=== PATIENT | male | born 1975 | race African-American/Black ===

== ENCOUNTER 2016-07-31 18:05 | Emergency (ER) | payer OTHER ==
[~2016-07-31 18:05] MED LIST: /ESCI20TA; /QUET25TA; ZYPR20TA
[2016-07-31] MEDS ORDERED: ADACEL/BOOSTRIX VACCINE (DIPHTH/PERTUSS/ACELL/TETANUS)0.5ML SYR (90715) As Ordered ONE (19:24)
[2016-07-31] MEDS ORDERED: IBUPROFEN 600 MG TAB As Ordered ONE (19:24)
--- NOTE | 2016-07-31 19:51 | EDDOCDS ---
Physician Documentation [facility] Name: Ronnie Juarez Age: 41 yrs Sex: Male : 1975 Arrival Date: 07/31/2016 Time: 18:05 Bed TR8 Private MD: NO PRIMARY PHYSICIAN, . Disposition: 07/31/16 19:16 Discharged to Home/Self Care. Impression: Laceration without foreign body of left thumb with damage to nail. - Condition is Stable. - Discharge Instructions: Fingernail or Toenail Loss. - Prescriptions for Ibuprofen 600 mg Oral Tablet - take 1 tablet by ORAL route every 6 hours As needed take with food; 30 tablet. - Medication Reconciliation, Local Pharmacy Hours form. - [facility]; When: Call to arrange an appointment; Reason: Recheck today's complaints, Continuance of care. - Problem is new. - Symptoms are unchanged. Historical: - Allergies: no known allergies; - Home Meds: 1. Ambien 10 mg Oral tab 1 tab once daily 2. BuSpar Oral 15 mg three times a day 3. Seroquel 100 mg Oral tab nightly - PMHx: Anxiety; insommnia; - PSHx: none; - Social history: Smoking status: Patient states was never smoker of tobacco. No barriers to communication noted, The patient speaks fluent Mongolian. - Family history: Not pertinent. - : The pt / caregiver states he / she is not on anticoagulants. Home medication list is obtained from the patient. - Exposure Risk Screening:: None identified. Vital Signs: 07/31 18:07 BP 167 / 92; Pulse 100; Resp 18; Pulse Ox 97% on R/A; Weight 90.72 kg / 200 lbs (R); sar1 Height 6 ft. 0 in. (182.88 cm); Pain 6/10; 18:07 Body Mass Index 27.12 (90.72 kg, 182.88 cm) sar1 MDM: 18:27 [facility] [place] was scanned into [employer] and attached to record. [email or web address] 19:11 Ibuprofen 600 mg PO once ordered. mo1 19:11 Misc. Nursing Order ordered. mo1 19:11 Dressing ordered. mo1 19:11 Tetanus- Diptheria-Acellular Pertussis 0.5 ml IM once; Routine booster 10-64yrs, >64 mo1 with child contact Denton Morales ordered. 19:17 Financial registration complete. 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 Exp: 09/15/2018. Lot #: [id number]. } Route: IM; Site: right deltoid; Signatures: Delilah Hinds RN RN [facility] [place] Solitario Cardenas RN RN Syed Covarrubias Michael, PA PA mo1 Velia Garcia, Reg Reg ks16 The chart was reviewed and I authenticate all verbal orders and agree with the evaluation and treatment provided.Attachments: 18:27 [facility] [place] [email or web address] MTDD
--- NOTE | 2016-07-31 19:51 | EDDOCDS ---
[facility]urse[facility] Notes [facility] Name: Ronnie Juarez Age: 41 yrs Sex: Male : 1975 Arrival Date: 07/31/2016 Time: 18:05 Bed TR8 Private MD: NO PRIMARY PHYSICIAN, . Diagnosis: Laceration without foreign body of left thumb with damage to nail Presentation: 07/31 18:14 Presenting complaint: Patient states: injured nail on left hand, got it caught on a po nail. Adult Sepsis Screening: The patient does not have new or worsening altered mentation. Patient's respiratory rate is less than 22. Systolic blood pressure is greater than 100. Patient has a qSOFA score of 0- Negative Sepsis Screen. Suicide/Homicide risk assessment- the patient denies having any suicidal and/or homicidal ideations and does not present with any other emotional, behavioral or mental health complaints. Status: Patient is not a underwriting service representative or dependent. Transition of care: patient was not received from another setting of care. 18:14 Acuity: MAIA Level 5 po 18:14 Method Of Arrival: Walkin/Carried/Asstd po Triage Assessment: 18:15 General: Appears in no apparent distress, Behavior is cooperative. Pain: Location: left po thumbnail Pain currently is 6 out of 10 on a pain scale. Is continuous. HIV screening NA for this visit Offered previously. Neurological: Level of Consciousness is awake, alert, Oriented to person, place, time. Respiratory: Airway is patent Respiratory effort is even, unlabored. Musculoskeletal: Circulation, motion, and sensation intact. Historical: - Allergies: no known allergies; - Home Meds: 1. Ambien 10 mg Oral tab 1 tab once daily 2. BuSpar Oral 15 mg three times a day 3. Seroquel 100 mg Oral tab nightly - PMHx: Anxiety; insommnia; - PSHx: none; - Social history: Smoking status: Patient states was never smoker of tobacco. No barriers to communication noted, The patient speaks fluent Mohawk. - Family history: Not pertinent. - : The pt / caregiver states he / she is not on anticoagulants. Home medication list is obtained from the patient. - Exposure Risk Screening:: None identified. Screenin:42 Screening information is obtained from the patient. Fall risk: No risks identified. kmg1 Assistance ADL's: requires no assistance with activities of daily living. Abuse/DV Screen: The patient / caregiver reports he/she is: not in a situation that causes fear, pain or injury. Nutritional screening: No deficits noted. Advance Directives: There is no active DNR order. home support is adequate. Assessment: 19:42 General: Appears in no apparent distress, comfortable, Behavior is appropriate for age. kmg1 Pain: Location: left thumbnail Pain currently is 6 out of 10 on a pain scale. Quality of pain is described as throbbing. Musculoskeletal: Circulation, motion, and sensation intact Capillary refill < 3 seconds in left fingers. Injury Description: Injured left thumb nail bed. Tore at the cuticle after catching on a nail. Vital Signs: 18:07 BP 167 / 92; Pulse 100; Resp 18; Pulse Ox 97% on R/A; Weight 90.72 kg (R); Height 6 ft. sar1 0 in. (182.88 cm); Pain 6/10; 18:07 Body Mass Index 27.12 (90.72 kg, 182.88 cm) sar1 Vitals: 18:07 Log In Time: July 31, 2016 at 18:07. [facility] ED Course: 18:07 Patient visited by Debby Mo, Hanny Hollis. sar1 18:07 NO PRIMARY PHYSICIAN, . is Private Physician. sar1 18:07 Patient moved to Waiting sar1 18:08 Patient moved to Pre RCE sar1 18:15 Triage Initiated po 18:15 Arm band placed on right wrist. Patient placed in waiting room. po 18:16 Patient visited by Solitario Cardenas RN. po 18:26 Patient name changed from Ronnie\S\\S\Larry\S\ to [place]\S\ \S\Larry. EDMS 18:27 [facility] Payment Agreement was scanned into [employer] and attached to record. ks16 18:45 Patient moved to Triage 2 mlb1 18:56 Scottie Maynard PA is PHCP. mo1 18:56 Yan Tolliver DO is Attending Physician. mo1 19:09 Patient visited by Scottie Maynard PA. mo1 19:16 [facility] is Referral Physician. mo1 19:42 The patient / caregiver is instructed regarding the plan of care and ED course. kmg1 19:42 No IV's were initiated during this patient's visit. Assisted Provider with Wound care. kmg1 Dressings: Band aid. 19:43 Patient moved to TR8 ms18 Administered Medications: 19:30 Drug: Ibuprofen 600 mg [ibuprofen 600 mg tablet (1 tabs)] Route: PO; kmg1 19:30 Drug: Tetanus- Diptheria-Acellular Pertussis 0.5 ml [diphth,pertussis(acel),tetanus 2.5 kmg1 Lf unit-8 mcg-5 Lf/0.5mL IM syringe (0.5 mL)] {Primary Teaching Assistant: [employer]. Exp: 09/15/2018. Lot #: [id number]. } Route: IM; Site: right deltoid; Order Results: There are currently no results for this order. Outcome: 19:16 Discharge ordered by Provider. mo1 19:42 Discharge Assessment: Patient awake, alert and oriented x 3. No cognitive and/or kmg1 functional deficits noted. Patient verbalized understanding of disposition instructions. Patient awake and alert. patient administered narcotics - no. The following High Risk Discharge criteria are identified: None. Discharged to home ambulatory. Condition: stable. Discharge instructions given to patient, Instructed on discharge instructions, follow up and referral plans. medication usage, Demonstrated understanding of instructions, medications, Pt was receptive of discharge instructions/ teaching. Prescriptions given X 1. No special radiology studies were completed. Property sent home with patient. 19:51 Patient left the ED. [facility] [place] Signatures: Dispatcher [employer] EDMS Delilah Hinds RN RN kmg1 Solitario CardenasRN Scottie Salcido, RN RN mlb1 Scottie Maynard PA PA mo1 Shaila Barrett,OSCAR MOORE ms18 Debby Mo, Holistic Health Practitioner Unit sar1 Velia Garcia, Reg Reg ks16 MTDD
--- NOTE | 2016-08-02 20:51 | EDDOCDS ---
Physician Documentation [facility] Name: Ronnie Juarez Age: 41 yrs Sex: Male : 1975 Arrival Date: 07/31/2016 Time: 18:05 Bed TR8 Private MD: NO PRIMARY PHYSICIAN, . Disposition: 07/31/16 19:16 Discharged to Home/Self Care. Impression: Laceration without foreign body of left thumb with damage to nail. - Condition is Stable. - Discharge Instructions: Fingernail or Toenail Loss. - Prescriptions for Ibuprofen 600 mg Oral Tablet - take 1 tablet by ORAL route every 6 hours As needed take with food; 30 tablet. - Medication Reconciliation, Local Pharmacy Hours form. - Follow up: [facility]; When: Call to arrange an appointment; Reason: Recheck today's complaints, Continuance of care. - Problem is new. - Symptoms are unchanged. Historical: - Allergies: no known allergies; - Home Meds: 1. Ambien 10 mg Oral tab 1 tab once daily 2. BuSpar Oral 15 mg three times a day 3. Seroquel 100 mg Oral tab nightly - PMHx: Anxiety; insommnia; - PSHx: none; - Social history: Smoking status: Patient states was never smoker of tobacco. No barriers to communication noted, The patient speaks fluent Tongan. - Family history: Not pertinent. - : The pt / caregiver states he / she is not on anticoagulants. Home medication list is obtained from the patient. - Exposure Risk Screening:: None identified. Vital Signs: 07/31 18:07 BP 167 / 92; Pulse 100; Resp 18; Pulse Ox 97% on R/A; Weight 90.72 kg / 200 lbs (R); sar1 Height 6 ft. 0 in. (182.88 cm); Pain 6/10; 18:07 Body Mass Index 27.12 (90.72 kg, 182.88 cm) sar1 MDM: 18:27 [facility] [place] Payment Agreement was scanned into [employer] and attached to record. ks16 19:11 Ibuprofen 600 mg PO once ordered. mo1 19:11 Misc. Nursing Order ordered. mo1 19:11 Dressing ordered. mo1 19:11 Tetanus- Diptheria-Acellular Pertussis 0.5 ml IM once; Routine booster 10-64yrs, >64 mo1 with child contact Denton Morales ordered. 19:17 Financial registration complete. zo 08/01 05:33 T-Sheet-- Draft Copy was scanned into [employer] and attached to record. 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 Exp: 09/15/2018. Lot #: [id number]. } Route: IM; Site: right deltoid; Signatures: Delilah Hinds, RN RN [facility] [place] Solitario Cardenas RN RN po Olin, Zoeann zo O'Hagan, Michael, PA PA mo1 Velia Garcia, Reg Reg ks16 Mili Max, Reg Reg hs2 The chart was reviewed and I authenticate all verbal orders and agree with the evaluation and treatment provided.Attachments: 18:27 [facility] Payment Agreement [email or web address] 08/01 05:33 T-Sheet-- Draft Copy hs2 Chart Complete MTDD
--- NOTE | 2016-08-02 20:51 | EDDOCDS ---
Physician Documentation [facility] Name: Ronnie Juarez Age: 41 yrs Sex: Male : 1975 Arrival Date: 07/31/2016 Time: 18:05 Bed TR8 Private MD: NO PRIMARY PHYSICIAN, . Disposition: 07/31/16 19:16 Discharged to Home/Self Care. Impression: Laceration without foreign body of left thumb with damage to nail. - Condition is Stable. - Discharge Instructions: Fingernail or Toenail Loss. - Prescriptions for Ibuprofen 600 mg Oral Tablet - take 1 tablet by ORAL route every 6 hours As needed take with food; 30 tablet. - Medication Reconciliation, Local Pharmacy Hours form. - Follow up: [facility]; When: Call to arrange an appointment; Reason: Recheck today's complaints, Continuance of care. - Problem is new. - Symptoms are unchanged. Historical: - Allergies: no known allergies; - Home Meds: 1. Ambien 10 mg Oral tab 1 tab once daily 2. BuSpar Oral 15 mg three times a day 3. Seroquel 100 mg Oral tab nightly - PMHx: Anxiety; insommnia; - PSHx: none; - Social history: Smoking status: Patient states was never smoker of tobacco. No barriers to communication noted, The patient speaks fluent Canadian. - Family history: Not pertinent. - : The pt / caregiver states he / she is not on anticoagulants. Home medication list is obtained from the patient. - Exposure Risk Screening:: None identified. Vital Signs: 07/31 18:07 BP 167 / 92; Pulse 100; Resp 18; Pulse Ox 97% on R/A; Weight 90.72 kg / 200 lbs (R); sar1 Height 6 ft. 0 in. (182.88 cm); Pain 6/10; 18:07 Body Mass Index 27.12 (90.72 kg, 182.88 cm) sar1 MDM: 18:27 [facility] [place] Agreement was scanned into [employer] and attached to record. ks16 19:11 Ibuprofen 600 mg PO once ordered. mo1 19:11 Misc. Nursing Order ordered. mo1 19:11 Dressing ordered. mo1 19:11 Tetanus- Diptheria-Acellular Pertussis 0.5 ml IM once; Routine booster 10-64yrs, >64 mo1 with child contact Denton Morales ordered. 19:17 Financial registration complete. zo 08/01 05:33 T-Sheet-- Draft Copy was scanned into [employer] and attached to record. 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 Exp: 09/15/2018. Lot #: [id number]. } Route: IM; Site: right deltoid; Signatures: Delilah Hinds, RN RN [facility] [place] Solitario Cardenas RN RN po Olin, Zoeann zo O'Hagan, Michael, PA PA mo1 Velia Garcia, Reg Reg ks16 Mili Max, Reg Reg hs2 The chart was reviewed and I authenticate all verbal orders and agree with the evaluation and treatment provided.Attachments: 18:27 [facility] Payment Agreement [email or web address] 08/01 05:33 T-Sheet-- Draft Copy hs2 Chart Complete MTDD
--- NOTE | 2016-08-02 20:51 | EDDOCDS ---
Nurse's Notes [facility] Name: Ronnie Juarez Age: 41 yrs Sex: Male : 1975 Arrival Date: 07/31/2016 Time: 18:05 Bed TR8 Private MD: NO PRIMARY PHYSICIAN, . Diagnosis: Laceration without foreign body of left thumb with damage to nail Presentation: 07/31 18:14 Presenting complaint: Patient states: injured nail on left hand, got it caught on a po nail. Adult Sepsis Screening: The patient does not have new or worsening altered mentation. Patient's respiratory rate is less than 22. Systolic blood pressure is greater than 100. Patient has a qSOFA score of 0- Negative Sepsis Screen. Suicide/Homicide risk assessment- the patient denies having any suicidal and/or homicidal ideations and does not present with any other emotional, behavioral or mental health complaints. Status: Patient is not a human service specialist or dependent. Transition of care: patient was not received from another setting of care. 18:14 Acuity: MAIA Level 5 po 18:14 Method Of Arrival: Walkin/Carried/Asstd po Triage Assessment: 18:15 General: Appears in no apparent distress, Behavior is cooperative. Pain: Location: left po thumbnail Pain currently is 6 out of 10 on a pain scale. Is continuous. HIV screening NA for this visit Offered previously. Neurological: Level of Consciousness is awake, alert, Oriented to person, place, time. Respiratory: Airway is patent Respiratory effort is even, unlabored. Musculoskeletal: Circulation, motion, and sensation intact. Historical: - Allergies: no known allergies; - Home Meds: 1. Ambien 10 mg Oral tab 1 tab once daily 2. BuSpar Oral 15 mg three times a day 3. Seroquel 100 mg Oral tab nightly - PMHx: Anxiety; insommnia; - PSHx: none; - Social history: Smoking status: Patient states was never smoker of tobacco. No barriers to communication noted, The patient speaks fluent Romanian. - Family history: Not pertinent. - : The pt / caregiver states he / she is not on anticoagulants. Home medication list is obtained from the patient. - Exposure Risk Screening:: None identified. Screenin:42 Screening information is obtained from the patient. Fall risk: No risks identified. kmg1 Assistance ADL's: requires no assistance with activities of daily living. Abuse/DV Screen: The patient / caregiver reports he/she is: not in a situation that causes fear, pain or injury. Nutritional screening: No deficits noted. Advance Directives: There is no active DNR order. home support is adequate. Assessment: 19:42 General: Appears in no apparent distress, comfortable, Behavior is appropriate for age. kmg1 Pain: Location: left thumbnail Pain currently is 6 out of 10 on a pain scale. Quality of pain is described as throbbing. Musculoskeletal: Circulation, motion, and sensation intact Capillary refill < 3 seconds in left fingers. Injury Description: Injured left thumb nail bed. Tore at the cuticle after catching on a nail. Vital Signs: 18:07 BP 167 / 92; Pulse 100; Resp 18; Pulse Ox 97% on R/A; Weight 90.72 kg (R); Height 6 ft. sar1 0 in. (182.88 cm); Pain 6/10; 18:07 Body Mass Index 27.12 (90.72 kg, 182.88 cm) sar1 Vitals: 18:07 Log In Time: July 31, 2016 at 18:07. [facility] ED Course: 18:07 Patient visited by Debby Mo, Hanny Hollis. sar1 18:07 NO PRIMARY PHYSICIAN, . is Private Physician. sar1 18:07 Patient moved to Waiting sar1 18:08 Patient moved to Pre RCE sar1 18:15 Triage Initiated po 18:15 Arm band placed on right wrist. Patient placed in waiting room. po 18:16 Patient visited by Solitario Cardenas RN. po 18:26 Patient name changed from Ronnie\S\\S\Larry\S\ to [place]\S\ \S\Larry. EDMS 18:27 [facility] Payment Agreement was scanned into [employer] and attached to record. ks16 18:45 Patient moved to Triage 2 mlb1 18:56 Scottie Maynard PA is PHCP. mo1 18:56 Yan Tolliver DO is Attending Physician. mo1 19:09 Patient visited by Scottie Maynard PA. mo1 19:16 [facility] is Referral Physician. mo1 19:42 The patient / caregiver is instructed regarding the plan of care and ED course. kmg1 19:42 No IV's were initiated during this patient's visit. Assisted Provider with Wound care. [facility] [place] Dressings: Band aid. 19:43 Patient moved to 8 ms18 08/01 05:33 T-Sheet-- Draft Copy was scanned into [employer] and attached to record. 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 Exp: 09/15/2018. Lot #: [id number]. } Route: IM; Site: right deltoid; Order Results: There are currently no results for this order. Outcome: 19:16 Discharge ordered by Provider. mo1 19:42 Discharge Assessment: Patient awake, alert and oriented x 3. No cognitive and/or kmg1 functional deficits noted. Patient verbalized understanding of disposition instructions. Patient awake and alert. patient administered narcotics - no. The following High Risk Discharge criteria are identified: None. Discharged to home ambulatory. Condition: stable. Discharge instructions given to patient, Instructed on discharge instructions, follow up and referral plans. medication usage, Demonstrated understanding of instructions, medications, Pt was receptive of discharge instructions/ teaching. Prescriptions given X 1. No special radiology studies were completed. Property sent home with patient. 19:51 Patient left the ED. [facility] [place] Signatures: [facility] Delilah Hinds, RN RN kmg1 Solitario CardenasRN OSCAR po Scottie Bland, RN RN mlb1 Scottie Maynard PA PA mo1 Shaila Barrett RN RN ms18 Debby Mo, Superintendent Warehouse Unit sar1 Velia Garcia, Reg Reg ks16 Mili Max, Reg Reg hs2 Chart Complete MTDD
== END 2016-07-31 19:51 | disposition home or self-care (01) ==
LOC: M ED 18:05
DX: S61.112A Laceration without foreign body of left thumb with damage to nail, initial encounter (principal); S61.309A Unspecified open wound of unspecified finger with damage to nail, initial encounter; S60.112A Contusion of left thumb with damage to nail, initial encounter; X58.XXXA Exposure to other specified factors, initial encounter; Y92.019 Unspecified place in single-family (private) house as the place of occurrence of the external cause; Y93.9 Activity, unspecified; Y99.9 Unspecified external cause status; F41.9 Anxiety disorder, unspecified; G47.00 Insomnia, unspecified; Z79.899 Other long term (current) drug therapy

== ENCOUNTER 2016-08-17 14:46 | Emergency (ER) | payer OTHER ==
--- NOTE | 2016-08-17 15:36 | EDDOCDS ---
Nurse's Notes [facility] Name: Ronnie Juarez Age: 41 yrs Sex: Male : 1975 Arrival Date: 08/17/2016 Time: 14:46 Bed PR Private MD: Nubia Cade M Diagnosis: Encounter for issue of repeat prescription Presentation: 08/17 14:53 Presenting complaint: Patient states: Seeking medication refill for Rozerem 8 mg mlb1 nightly. Adult Sepsis Screening: The patient does not have new or worsening altered mentation. Patient's respiratory rate is less than 22. Systolic blood pressure is greater than 100. Patient has a qSOFA score of 0- Negative Sepsis Screen. Suicide/Homicide risk assessment- the patient denies having any suicidal and/or homicidal ideations and does not present with any other emotional, behavioral or mental health complaints. Status: Patient is not a vp cardiovascular service line or dependent. Transition of care: patient was not received from another setting of care. 14:53 Acuity: MAIA Level 5 mlb1 14:53 Method Of Arrival: Walkin/Carried/Asstd mlb1 Triage Assessment: 14:56 General: Appears in no apparent distress, Behavior is cooperative. Pain: Denies pain. mlb1 HIV screening NA for this visit Offered previously. Historical: - Allergies: no known allergies; - Home Meds: 1. BuSpar Oral 15 mg three times a day 2. Seroquel 100 mg Oral tab nightly 3. Rozerem 8 mg oral tab 1 tab once daily - PMHx: Anxiety; insommnia; - PSHx: none; - Social history: Smoking status: Patient states was never smoker of tobacco. No barriers to communication noted, The patient speaks fluent Prydeinig, Speaks appropriately for age. - Family history: Not pertinent. - : The pt / caregiver states he / she is not on anticoagulants. Home medication list is obtained from the patient. - Exposure Risk Screening:: None identified. Screenin:34 Screening information is obtained from the patient. Fall risk: No risks identified. ck1 Assistance ADL's: requires no assistance with activities of daily living. Abuse/DV Screen: The patient / caregiver reports he/she is: not in a situation that causes fear, pain or injury. Nutritional screening: No deficits noted. Advance Directives: Currently, there is no health care proxy. home support is adequate. Assessment: 15:35 General: Appears in no apparent distress, comfortable, Behavior is appropriate for age, ck1 cooperative. Pain: Denies pain. Neurological: Level of Consciousness is awake, alert, obeys commands, Oriented to person, place, time. Respiratory: No deficits noted. Derm: Skin is intact, is healthy with good turgor, Skin is pink, warm & dry. Musculoskeletal: Circulation, motion, and sensation intact Range of motion intact in all extremities. Vital Signs: 14:48 BP 219 / 99; Pulse 107; Resp 18; Temp 98.0; Pulse Ox 100% ; Weight 90.72 kg; Height 6 elp ft. 0 in. (182.88 cm); Pain 0/10; 15:33 BP 150 / 90 RA Sitting (auto/lg); Pulse 96; Resp 18; Temp 98.6(O); Pulse Ox 100% on rs6 R/A; Pain 0/10; 14:48 Body Mass Index 27.12 (90.72 kg, 182.88 cm) elp Vitals: 14:48 Log In Time: August 17, 2016 at 14:45. elp ED Course: 14:46 Patient visited by Melissa Pulliam PCA. elp 14:46 Patient moved to Waiting elp 14:48 Nubia Cade is Private Physician. elp 14:48 Patient visited by Melissa Pulliam PCA. elp 14:48 Patient moved to Pre RCE elp 14:53 Patient visited by Scottie Bland, OSCAR. mlb1 14:55 Triage Initiated mlb1 14:56 Patient visited by Scottie Bland, RN. mlb1 15:09 Patient moved to PR2 / rs6 15:19 Julio C[facility]ar [facility]C [facility]. cc10 15:19 Cedric Marie MD is Attending Physician. cc10 15:19 Patient visited by Julio César Cruz PA-C. cc10 15:19 Patient visited by Julio César Cruz PA-C. cc10 15:24 Nubia Cade is Referral Physician. cc10 15:33 Patient visited by Clary Nolan PCA. rs6 15:34 The patient / caregiver is instructed regarding the plan of care and ED course. ck1 15:34 No IV's were initiated during this patient's visit. No procedures done that require ck1 assistance. Order Results: There are currently no results for this order. Outcome: 15:24 Discharge ordered by Provider. cc10 15:34 Discharge Assessment: Patient awake, alert and oriented x 3. No cognitive and/or ck1 functional deficits noted. Patient verbalized understanding of disposition instructions. patient administered narcotics - no. The following High Risk Discharge criteria are identified: None. Discharged to home ambulatory. Condition: stable. Discharge instructions given to patient, Instructed on discharge instructions, follow up and referral plans. medication usage, Demonstrated understanding of instructions, medications, Pt was receptive of discharge instructions/ teaching. Prescriptions given X 1. No special radiology studies were completed. Property :Personal belongings accompany Pt. 15:35 Patient left the ED. ck1 Signatures: Scottie Bland, RN RN mlb1 Lachelle Hodge RN RN ck1 Melissa Pulliam, SENIOR MANAGING DIRECTOR SENIOR MANAGING DIRECTOR elp Julio César Cruz PA-C PASangita cc10 Clary Nolan, SENIOR MANAGING DIRECTOR SENIOR MANAGING DIRECTOR rs6 WILLIAMD
--- NOTE | 2016-08-17 15:36 | EDDOCDS ---
Physician Documentation [facility] Name: Ronnie Juarez Age: 41 yrs Sex: Male : 1975 Arrival Date: 08/17/2016 Time: 14:46 Bed Private MD: Nubia Cade M Disposition: 08/17/16 15:24 Discharged to Home/Self Care. Impression: Encounter for issue of repeat prescription. - Condition is Stable. - Discharge Instructions: Medicine Refill at the Emergency Department. - Prescriptions for Rozerem 8 mg Oral tablet - take 1 tablet by ORAL route at bedtime at bedtime; 20 tablet. - Medication Reconciliation form. - Follow up: Emergency Department; When: As needed; Reason: Worsening of conditions. Follow up: Nubia Cade; When: Call to arrange an appointment; Reason: Recheck today's complaints, Continuance of care. - Problem is chronic. - Symptoms are unchanged. Historical: - Allergies: no known allergies; - Home Meds: 1. BuSpar Oral 15 mg three times a day 2. Seroquel 100 mg Oral tab nightly 3. Rozerem 8 mg oral tab 1 tab once daily - PMHx: Anxiety; insommnia; - PSHx: none; - Social history: Smoking status: Patient states was never smoker of tobacco. No barriers to communication noted, The patient speaks fluent Pashto, Speaks appropriately for age. - Family history: Not pertinent. - : The pt / caregiver states he / she is not on anticoagulants. Home medication list is obtained from the patient. - Exposure Risk Screening:: None identified. Vital Signs: 08/17 14:48 BP 219 / 99; Pulse 107; Resp 18; Temp 98.0; Pulse Ox 100% ; Weight 90.72 kg / 200 lbs; elp Height 6 ft. 0 in. (182.88 cm); Pain 0/10; 15:33 BP 150 / 90 RA Sitting (auto/lg); Pulse 96; Resp 18; Temp 98.6(O); Pulse Ox 100% on rs6 R/A; Pain 0/10; 14:48 Body Mass Index 27.12 (90.72 kg, 182.88 cm) elp Signatures: Scottie Bland RN RN mlb1 Brenda-Kendell,Lachelle,RN RN ck1 [place], Julio César, PA-C PA-C cc10 MTDD
--- NOTE | 2016-08-19 16:36 | EDDOCDS ---
Physician Documentation [facility] Name: Ronnie Juarez Age: 41 yrs Sex: Male : 1975 Arrival Date: 08/17/2016 Time: 14:46 Bed Private MD: Nubia Cade M Disposition: 08/17/16 15:24 Discharged to Home/Self Care. Impression: Encounter for issue of repeat prescription. - Condition is Stable. - Discharge Instructions: Medicine Refill at the Emergency Department. - Prescriptions for Rozerem 8 mg Oral tablet - take 1 tablet by ORAL route at bedtime at bedtime; 20 tablet. - Medication Reconciliation form. - Follow up: Emergency Department; When: As needed; Reason: Worsening of conditions. Follow up: Nubia Cade; When: Call to arrange an appointment; Reason: Recheck today's complaints, Continuance of care. - Problem is chronic. - Symptoms are unchanged. Historical: - Allergies: no known allergies; - Home Meds: 1. BuSpar Oral 15 mg three times a day 2. Seroquel 100 mg Oral tab nightly 3. Rozerem 8 mg oral tab 1 tab once daily - PMHx: Anxiety; insommnia; - PSHx: none; - Social history: Smoking status: Patient states was never smoker of tobacco. No barriers to communication noted, The patient speaks fluent Kinyarwanda, Speaks appropriately for age. - Family history: Not pertinent. - : The pt / caregiver states he / she is not on anticoagulants. Home medication list is obtained from the patient. - Exposure Risk Screening:: None identified. Vital Signs: 08/17 14:48 BP 219 / 99; Pulse 107; Resp 18; Temp 98.0; Pulse Ox 100% ; Weight 90.72 kg / 200 lbs; elp Height 6 ft. 0 in. (182.88 cm); Pain 0/10; 15:33 BP 150 / 90 RA Sitting (auto/lg); Pulse 96; Resp 18; Temp 98.6(O); Pulse Ox 100% on rs6 R/A; Pain 0/10; 14:48 Body Mass Index 27.12 (90.72 kg, 182.88 cm) elp MDM: 15:40 [facility] [place] Agreement was scanned into [employer] and attached to record. lg 08/18 10:13 T-Sheet-- Draft Copy was scanned into [employer] and attached to record. gb Signatures: Lily Walter, Reg Reg gb Randal Mota, Reg Reg lg Scottie Bland RN RN mlb1 Lachelle Hodge RN RN ck1 Julio César Cruz, EWELINAC PASangita cc10 The chart was reviewed and I authenticate all verbal orders and agree with the evaluation and treatment provided.Attachments: 08/17 15:40 [facility] Payment Agreement lg 08/18 10:13 T-Sheet-- Draft Copy gb Chart Complete MTDD
--- NOTE | 2016-08-19 16:36 | EDDOCDS ---
Physician Documentation [facility] Name: Ronnie Juarez Age: 41 yrs Sex: Male : 1975 Arrival Date: 08/17/2016 Time: 14:46 Bed Private MD: Nubia Cade M Disposition: 08/17/16 15:24 Discharged to Home/Self Care. Impression: Encounter for issue of repeat prescription. - Condition is Stable. - Discharge Instructions: Medicine Refill at the Emergency Department. - Prescriptions for Rozerem 8 mg Oral tablet - take 1 tablet by ORAL route at bedtime at bedtime; 20 tablet. - Medication Reconciliation form. - Follow up: Emergency Department; When: As needed; Reason: Worsening of conditions. Follow up: Nubia Cade; When: Call to arrange an appointment; Reason: Recheck today's complaints, Continuance of care. - Problem is chronic. - Symptoms are unchanged. Historical: - Allergies: no known allergies; - Home Meds: 1. BuSpar Oral 15 mg three times a day 2. Seroquel 100 mg Oral tab nightly 3. Rozerem 8 mg oral tab 1 tab once daily - PMHx: Anxiety; insommnia; - PSHx: none; - Social history: Smoking status: Patient states was never smoker of tobacco. No barriers to communication noted, The patient speaks fluent Welsh, Speaks appropriately for age. - Family history: Not pertinent. - : The pt / caregiver states he / she is not on anticoagulants. Home medication list is obtained from the patient. - Exposure Risk Screening:: None identified. Vital Signs: 08/17 14:48 BP 219 / 99; Pulse 107; Resp 18; Temp 98.0; Pulse Ox 100% ; Weight 90.72 kg / 200 lbs; elp Height 6 ft. 0 in. (182.88 cm); Pain 0/10; 15:33 BP 150 / 90 RA Sitting (auto/lg); Pulse 96; Resp 18; Temp 98.6(O); Pulse Ox 100% on rs6 R/A; Pain 0/10; 14:48 Body Mass Index 27.12 (90.72 kg, 182.88 cm) elp MDM: 15:40 [facility] [place] Payment Agreement was scanned into [employer] and attached to record. lg 08/18 10:13 T-Sheet-- Draft Copy was scanned into [employer] and attached to record. gb Signatures: Lily Walter, Reg Reg gb Randal Mota, Reg Reg lg Scottie Bland RN RN mlb1 Lachelle Hodge RN RN ck1 Julio César Cruz, EWELINAC PASangita cc10 The chart was reviewed and I authenticate all verbal orders and agree with the evaluation and treatment provided.Attachments: 08/17 15:40 [facility] Payment Agreement lg 08/18 10:13 T-Sheet-- Draft Copy gb Chart Complete MTDD
--- NOTE | 2016-08-19 16:36 | EDDOCDS ---
Nurse's Notes [facility] Name: Ronnie Juarez Age: 41 yrs Sex: Male : 1975 Arrival Date: 08/17/2016 Time: 14:46 Bed PR Private MD: Nubia Cade M Diagnosis: Encounter for issue of repeat prescription Presentation: 08/17 14:53 Presenting complaint: Patient states: Seeking medication refill for Rozerem 8 mg mlb1 nightly. Adult Sepsis Screening: The patient does not have new or worsening altered mentation. Patient's respiratory rate is less than 22. Systolic blood pressure is greater than 100. Patient has a qSOFA score of 0- Negative Sepsis Screen. Suicide/Homicide risk assessment- the patient denies having any suicidal and/or homicidal ideations and does not present with any other emotional, behavioral or mental health complaints. Status: Patient is not a consulting services associate or dependent. Transition of care: patient was not received from another setting of care. 14:53 Acuity: MAIA Level 5 mlb1 14:53 Method Of Arrival: Walkin/Carried/Asstd mlb1 Triage Assessment: 14:56 General: Appears in no apparent distress, Behavior is cooperative. Pain: Denies pain. mlb1 HIV screening NA for this visit Offered previously. Historical: - Allergies: no known allergies; - Home Meds: 1. BuSpar Oral 15 mg three times a day 2. Seroquel 100 mg Oral tab nightly 3. Rozerem 8 mg oral tab 1 tab once daily - PMHx: Anxiety; insommnia; - PSHx: none; - Social history: Smoking status: Patient states was never smoker of tobacco. No barriers to communication noted, The patient speaks fluent Rwandan, Speaks appropriately for age. - Family history: Not pertinent. - : The pt / caregiver states he / she is not on anticoagulants. Home medication list is obtained from the patient. - Exposure Risk Screening:: None identified. Screenin:34 Screening information is obtained from the patient. Fall risk: No risks identified. ck1 Assistance ADL's: requires no assistance with activities of daily living. Abuse/DV Screen: The patient / caregiver reports he/she is: not in a situation that causes fear, pain or injury. Nutritional screening: No deficits noted. Advance Directives: Currently, there is no health care proxy. home support is adequate. Assessment: 15:35 General: Appears in no apparent distress, comfortable, Behavior is appropriate for age, ck1 cooperative. Pain: Denies pain. Neurological: Level of Consciousness is awake, alert, obeys commands, Oriented to person, place, time. Respiratory: No deficits noted. Derm: Skin is intact, is healthy with good turgor, Skin is pink, warm & dry. Musculoskeletal: Circulation, motion, and sensation intact Range of motion intact in all extremities. Vital Signs: 14:48 BP 219 / 99; Pulse 107; Resp 18; Temp 98.0; Pulse Ox 100% ; Weight 90.72 kg; Height 6 elp ft. 0 in. (182.88 cm); Pain 0/10; 15:33 BP 150 / 90 RA Sitting (auto/lg); Pulse 96; Resp 18; Temp 98.6(O); Pulse Ox 100% on rs6 R/A; Pain 0/10; 14:48 Body Mass Index 27.12 (90.72 kg, 182.88 cm) elp Vitals: 14:48 Log In Time: August 17, 2016 at 14:45. elp ED Course: 14:46 Patient visited by Melissa Pulliam PCA. elp 14:46 Patient moved to Waiting elp 14:48 Nubia Cade is Private Physician. elp 14:48 Patient visited by Melissa Pulliam PCA. elp 14:48 Patient moved to Pre RCE elp 14:53 Patient visited by Scottie Bland, OSCAR. mlb1 14:55 Triage Initiated mlb1 14:56 Patient visited by Scottie Bland, RN. mlb1 15:09 Patient moved to PR2 / rs6 15:19 [facility] cc[facility] 15:19 Cedric Marie MD is Attending Physician. cc10 15:19 Patient visited by Julio César Cruz PA-C. cc10 15:19 Patient visited by Julio César Cruz PA-C. cc10 15:24 Nubia Cade is Referral Physician. cc10 15:33 Patient visited by Clary Nolan PCA. rs6 15:34 The patient / caregiver is instructed regarding the plan of care and ED course. ck1 15:34 No IV's were initiated during this patient's visit. No procedures done that require ck1 assistance. 15:40 Patient name changed from Ronnie\S\\S\Larry\S\ to [place]\S\ \S\Larry. EDMS 15:40 [facility] Payment Agreement was scanned into [employer] and attached to record. 08/18 10:13 T-Sheet-- Draft Copy was scanned into [employer] and attached to record. gb Order Results: There are currently no results for this order. Outcome: 08/17 15:24 Discharge ordered by Provider. cc 15:34 Discharge Assessment: Patient awake, alert and oriented x 3. No cognitive and/or ck1 functional deficits noted. Patient verbalized understanding of disposition instructions. patient administered narcotics - no. The following High Risk Discharge criteria are identified: None. Discharged to home ambulatory. Condition: stable. Discharge instructions given to patient, Instructed on discharge instructions, follow up and referral plans. medication usage, Demonstrated understanding of instructions, medications, Pt was receptive of discharge instructions/ teaching. Prescriptions given X 1. No special radiology studies were completed. Property :Personal belongings accompany Pt. 15:35 Patient left the ED. ck1 Signatures: Dispatcher [employer] EDSD Lily Walter, Reg Reg gb Randal Mota, Reg Reg lg Scottie Bland RN RN mlb1 Lachelle HodgeRN RN ck1 Melissa Pulliam, STRUCTURAL ANALYSIS ENGINEER STRUCTURAL ANALYSIS ENGINEER elp Julio César Cruz, PA-C PA-C cc10 Clary Nolan, STRUCTURAL ANALYSIS ENGINEER STRUCTURAL ANALYSIS ENGINEER rs6 Chart Complete MTDD
== END 2016-08-17 15:35 | disposition home or self-care (01) ==
LOC: M ED 14:46
DX: Z76.0 Encounter for issue of repeat prescription (principal); G47.00 Insomnia, unspecified; F41.9 Anxiety disorder, unspecified; Z79.899 Other long term (current) drug therapy

== ENCOUNTER 2016-11-03 16:53 | Emergency (ER) | payer OTHER ==
[~2016-11-03] VITALS: Ht 185.4 cm; Wt 127.0 kg
[2016-11-03 16:54] VITALS: BP 136/82
[2016-11-03] MEDS ORDERED: BUSP15TA47 PO (17:02)
[2016-11-03] MEDS ORDERED: AMBI10TA PO (17:02)
[2016-11-03] MEDS ORDERED: NAPR500T PO (17:18)
== END 2016-11-03 17:32 | disposition home or self-care (01) ==
LOC: M ED 17:27
DX: M25.561 Pain in right knee (principal); Z79.899 Other long term (current) drug therapy

== ENCOUNTER → 2016-11-25 | Outpatient (CLI) | payer OTHER ==
[~2016-11-25] MED LIST changes: +AMBI10TA PO; +BUSP15TA47 PO; +NAPR500T PO
--- NOTE | 2016-11-25 16:04 | REP ---
MRI RIGHT KNEE: TECHNIQUE: Axial proton density fat saturation, sagittal proton density T2 STIR, water excitation, coronal proton density, proton density fat saturation. No meniscal tear is seen. The cruciate and collateral ligaments are intact. The extensor mechanism is intact. However, there does appear to be increased signal focally in the patellar tendon at the insertion onto the patella suggesting tendinitis or a small partial tear. No osteochondral defect is seen. There does appear to be mild chondromalacia in the medial and lateral joint compartments. Mild marrow edema is seen peripherally in the lateral tibial plateau. This may represent a bone bruise. There is a fairly large joint effusion. No popliteal cyst is seen. IMPRESSION: No meniscal tear. Cruciate and collateral ligaments intact. Small partial tear or tendinitis of the patellar tendon just inferior to the patella. Mild marrow edema lateral tibial plateau. Large joint effusion. Signed by Al Salgado MD 11/25/2016 04:44 P
== END ==
LOC: M RAD 13:48
PROVIDERS: ATTEND Orthopaedic Surgery
DX: M25.561 Pain in right knee (principal)

== ENCOUNTER 2017-04-24 10:24 | Emergency (ER) | payer OTHER, SELFPAY ==
[~2017-04-24] VITALS: Ht 185.4 cm; Wt 88.6 kg
[~2017-04-24 10:24] MED LIST changes: -MAGICMW SSP
[2017-04-24 10:25] VITALS: BP 154/97
[2017-04-24] MEDS ORDERED: MAGICMW SSP (12:27)
[2017-04-24] MEDS ORDERED: MAGIC MOUTHWASH SUSPENSION BTL SS ONE (12:30)
== END 2017-04-24 12:50 | disposition home or self-care (01) ==
LOC: M ED 10:24
DX: J02.9 Acute pharyngitis, unspecified (principal); F41.9 Anxiety disorder, unspecified; F33.9 Major depressive disorder, recurrent, unspecified; F10.20 Alcohol dependence, uncomplicated; F12.20 Cannabis dependence, uncomplicated

== ENCOUNTER → 2017-04-24 | Outpatient (CLI) | payer OTHER ==
[~2017-04-24] MED LIST changes: +MAGICMW SSP
[2017-04-24 10:37] LABS: ALBUMIN 3.6 GM/DL (3.2-5.2); ALBUMIN/GLOBULIN RATIO 0.97 (1.00-1.93); ALKALINE PHOSPHATASE 54 U/L (45-117); ALT/SGPT 35 U/L (12-78); ANION GAP 7 MEQ/L (8-16); AST/SGOT 15 U/L (15-37); BILIRUBIN,TOTAL 0.3 MG/DL (0.2-1.0); BLOOD UREA NITROGEN 14 MG/DL (7-18); CALCIUM LEVEL 8.5 MG/DL (8.5-10.1); CARBON DIOXIDE LEVEL 28 MEQ/L (21-32); CHLORIDE LEVEL 98 MEQ/L (98-107); CHOLESTEROL LEVEL 216 MG/DL (<200); CREATININE FOR GFR 1.11 MG/DL (0.70-1.30); GLOMERULAR FILTRATION RATE > 60.0 (>60); GLUCOSE, FASTING 307 MG/DL (70-105); POTASSIUM SERUM 4.8 MEQ/L (3.5-5.1); SODIUM LEVEL 133 MEQ/L (136-145); TOTAL PROTEIN 7.3 GM/DL (6.4-8.2); TRIGLYCERIDES LEVEL 119 MG/DL (<150)
== END ==
LOC: M LAB 09:43
PROVIDERS: ATTEND Family Medicine Addiction Medicine
DX: E11.9 Type 2 diabetes mellitus without complications (principal)

== ENCOUNTER → 2017-05-16 | Outpatient (REF) | payer OTHER ==
[~2017-05-16] MED LIST changes: +MAGICMW SSP
[2017-05-16 19:41] LABS: URIC ACID, BODY FLUID 7.1 MG/DL (NOT ESTABLISHED)
[2017-05-16 20:04] LABS: BF MONONUCLEAR CELL % 88.8 % (0-0); BF POLYMORPHONUCLEAR CELL % 11.2 % (0-0); RBC BODY FLUID < 2000 10^3/uL (<2000); WBC BODY FLUID 214 /uL (0-10)
[2017-05-16 20:21] LABS: BF DIFF IF INDICATED? YES (NO); SYNOVIAL FLUID COLOR PALE YELLOW (YELLOW)
[2017-05-16 22:11] LABS: CRYSTALS, BODY FLUID NONE SEEN (NONE SEEN)
== END ==
LOC: M LAB REF 17:26
PROVIDERS: ATTEND Orthopaedic Surgery
DX: M25.461 Effusion, right knee (principal)

== ENCOUNTER 2017-06-16 14:03 | Emergency (ER) | payer OTHER ==
[~2017-06-16] VITALS: Ht 182.9 cm; Wt 90.9 kg
[2017-06-16 14:14] VITALS: BP 177/101
[2017-06-16] MEDS ORDERED: LISI10TA4 PO (14:19)
[2017-06-16] MEDS ORDERED: BUSP15TA47 PO (14:19)
[2017-06-16] MEDS ORDERED: GLYB5TA PO (14:19)
[2017-06-16] MEDS ORDERED: METF500T13 PO (14:19)
[2017-06-16] MEDS ORDERED: SERO1TAB3 PO (14:19)
[2017-06-16] MEDS ORDERED: SERO1TAB PO (14:19)
[2017-06-16] MEDS ORDERED: AMBI10TA PO (16:50)
== END 2017-06-16 17:01 | disposition home or self-care (01) ==
LOC: M ED 14:03
DX: Z76.0 Encounter for issue of repeat prescription (principal); G47.00 Insomnia, unspecified; F41.9 Anxiety disorder, unspecified; E11.9 Type 2 diabetes mellitus without complications; F33.9 Major depressive disorder, recurrent, unspecified

== ENCOUNTER 2017-06-24 15:10 | Emergency (ER) | payer OTHER ==
[~2017-06-24] VITALS: Ht 185.4 cm; Wt 94.0 kg
[~2017-06-24 15:10] MED LIST changes: +GLYB5TA PO; +LISI10TA4 PO; +METF500T13 PO; +SERO1TAB PO; +SERO1TAB3 PO
[2017-06-24] MEDS ORDERED: AMBI10TA PO ×2 (17:07→17:17)
[2017-06-24 17:33] VITALS: BP 142/91
== END 2017-06-24 17:52 | disposition home or self-care (01) ==
LOC: M ED 15:10
DX: Z76.0 Encounter for issue of repeat prescription (principal); G47.00 Insomnia, unspecified; Z79.899 Other long term (current) drug therapy

== ENCOUNTER → 2017-08-16 | Outpatient (REF) | payer OTHER ==
[2017-08-19 00:07] LABS: Lyme Disease IgG/IgM Antibodie <0.91 ISR (0.00-0.90); Lyme Disease IgM Ab Quantitati <0.80 index (0.00-0.79)
== END ==
LOC: M LABDRAW1 17:21
DX: M25.461 Effusion, right knee (principal)

== ENCOUNTER 2017-12-23 18:56 | Emergency (ER) | payer OTHER ==
[2017-12-23] MEDS: IBUPROFEN 600 MG TAB PO (20:20)
[2017-12-23] MEDS: NORCO, ANEXSIA 5/325MG TABLET (HYDROcodone/ACETAMINOPHEN) PO (21:05)
== END 2017-12-23 21:21 | disposition home or self-care (01) ==
LOC: M ED 18:56
DX: M17.11 Unilateral primary osteoarthritis, right knee (principal); M25.461 Effusion, right knee; E11.9 Type 2 diabetes mellitus without complications
CPT/HCPCS: 73564

== ENCOUNTER → 2018-02-14 | Outpatient (CLI) | payer OTHER | LOC: M RAD 16:52 | DX: S83.241A Other tear of medial meniscus, current injury, right knee, initial encounter (principal); M17.11 Unilateral primary osteoarthritis, right knee; M22.41 Chondromalacia patellae, right knee; M25.461 Effusion, right knee; X58.XXXA Exposure to other specified factors, initial encounter; Y92.9 Unspecified place or not applicable | CPT/HCPCS: 73721 ==

== ENCOUNTER 2018-03-30 12:09 | Emergency (ER) | payer OTHER | END 2018-03-30 13:28 | disposition left against medical advice (07) | LOC: M ED 12:09 | DX: Z53.29 Procedure and treatment not carried out because of patient's decision for other reasons (principal) ==

== ENCOUNTER → 2018-04-27 | Outpatient (REF) | payer OTHER ==
[2018-04-27 13:52] LABS: ALBUMIN 4.2 GM/DL (3.2-5.2); ALBUMIN/GLOBULIN RATIO 1.31 (1.00-1.93); ALKALINE PHOSPHATASE 43 U/L (45-117); ALT/SGPT 38 U/L (12-78); ANION GAP 12 MEQ/L (8-16); AST/SGOT 13 U/L (7-37); BILIRUBIN,TOTAL 0.3 MG/DL (0.2-1.0); BLOOD UREA NITROGEN 18 MG/DL (7-18); CALCIUM LEVEL 9.3 MG/DL (8.5-10.1); CARBON DIOXIDE LEVEL 24 MEQ/L (21-32); CHLORIDE LEVEL 101 MEQ/L (98-107); CHOLESTEROL LEVEL 249 MG/DL (<200); CHOLESTEROL RISK RATIO 5.533 (<5); CREATININE FOR GFR 0.96 MG/DL (0.70-1.30); GLOMERULAR FILTRATION RATE > 60.0 (>60); GLUCOSE, FASTING 272 MG/DL (70-100); HDL CHOLESTEROL 45 MG/DL (>40); LDL CHOLESTEROL 180 MG/DL (<100); NON-HDL-C 204 MG/DL; POTASSIUM SERUM 4.5 MEQ/L (3.5-5.1); SODIUM LEVEL 137 MEQ/L (136-145); TOTAL PROTEIN 7.4 GM/DL (6.4-8.2); TRIGLYCERIDES LEVEL 122 MG/DL (<150)
[2018-04-27 14:08] LABS: ESTIMATED AVERAGE GLUCOSE 298 MG/DL (60-110)
== END ==
LOC: M LAB REF 12:57
DX: E11.9 Type 2 diabetes mellitus without complications (principal)

== ENCOUNTER 2018-08-10 07:23 | Emergency (ER) | payer OTHER ==
[~2018-08-10] VITALS: Ht 185.4 cm; Wt 95.5 kg
[~2018-08-10 07:23] MED LIST changes: +NAPR-50 PO; -NAPR500T PO; +NORCOTAB PO; +ROZE8TAB16 PO; +ZOLP10TA2 PO
[2018-08-10] MEDS ORDERED: QUET1TAB8 PO (07:43)
[2018-08-10] MEDS ORDERED: METF850T4 PO (07:43)
[2018-08-10] MEDS ORDERED: IBUPROFEN 400 MG TAB PO ONE (08:00)
[2018-08-10] MEDS ORDERED: SERO200T PO (08:00)
[2018-08-10 08:55] VITALS: BP 125/66
--- NOTE | 2018-08-10 09:04 | REP ---
RIGHT KNEE SERIES: Five views. HISTORY: Right knee swelling. COMPARISON STUDY: December 23, 2017. FINDINGS: Five views of the right knee demonstrate medial, lateral, and patellofemoral osteoarthritic spurring which is unchanged radiographically. There is no evidence of fracture or subluxation. There is swelling in the suprapatellar bursa however consistent with a joint effusion. No erosive change is seen. IMPRESSION: Findings consistent with large joint effusion. Three compartment osteoarthritis. Radiographically mild. No change from December 23, 2017. Electronically Signed by Ethan Higginbotham MD 08/10/2018 10:20 A
== END 2018-08-10 09:22 | disposition home or self-care (01) ==
LOC: M ED 07:23
DX: M25.561 Pain in right knee (principal); Z79.899 Other long term (current) drug therapy

== ENCOUNTER → 2018-08-17 | Outpatient (REF) | payer OTHER ==
[~2018-08-17] MED LIST changes: +METF850T4 PO; +QUET1TAB8 PO; +SERO200T PO
[2018-08-17 14:09] LABS: MALB URINE SIEMENS 43.8 MG/L; MAU/CREAT RATIO 37.4 MCG/MG (0.0-30.0)
== END ==
LOC: M LAB REF 13:15
PROVIDERS: ATTEND Family Medicine Addiction Medicine
DX: E11.9 Type 2 diabetes mellitus without complications (principal)

== ENCOUNTER → 2018-09-26 | Outpatient (CLI) | payer OTHER ==
[2018-09-26 09:28] LABS: ALBUMIN 3.8 GM/DL (3.2-5.2); ALT/SGPT 30 U/L (12-78); BILIRUBIN,TOTAL 0.4 MG/DL (0.2-1.0); BLOOD UREA NITROGEN 21 MG/DL (7-18); CALCIUM LEVEL 9.5 MG/DL (8.5-10.1); CARBON DIOXIDE LEVEL 26 MEQ/L (21-32); CHLORIDE LEVEL 95 MEQ/L (98-107); CHOLESTEROL LEVEL 212 MG/DL (<200); CREATININE FOR GFR 1.35 MG/DL (0.70-1.30); GLOMERULAR FILTRATION RATE > 60.0 (>60); GLUCOSE, FASTING 323 MG/DL (70-100); HDL CHOLESTEROL 47 MG/DL (>40); LDL CHOLESTEROL 103 MG/DL (<100); NON-HDL-C 165 MG/DL; POTASSIUM SERUM 4.5 MEQ/L (3.5-5.1); SODIUM LEVEL 132 MEQ/L (136-145); TOTAL PROTEIN 7.3 GM/DL (6.4-8.2); TRIGLYCERIDES LEVEL 310 MG/DL (<150)
[2018-09-26 09:37] LABS: HEMOGLOBIN A1c 11.9 %
== END ==
LOC: M LAB 08:07
PROVIDERS: ATTEND Physician Assistant
DX: Z00.01 Encounter for general adult medical examination with abnormal findings (principal)

== ENCOUNTER 2018-10-26 20:43 | Emergency (ER) | payer OTHER ==
[~2018-10-26] VITALS: Ht 185.4 cm; Wt 90.9 kg
[~2018-10-26 20:43] MED LIST changes: -/ESCI20TA; -/QUET25TA; +HYDR-3715 PO; +LEXA1TAB2; -NAPR-50 PO; +NAPR-837 PO; -NORCOTAB PO; +SERO1TAB3
[2018-10-26] MEDS ORDERED: AMBI10TA PO (21:50)
== END 2018-10-26 22:03 | disposition home or self-care (01) ==
LOC: M ED 20:43
DX: Z76.0 Encounter for issue of repeat prescription (principal); G47.00 Insomnia, unspecified; F41.9 Anxiety disorder, unspecified; F32.9 Major depressive disorder, single episode, unspecified; Z79.899 Other long term (current) drug therapy; Z88.8 Allergy status to other drugs, medicaments and biological substances

== ENCOUNTER → 2019-02-26 | Outpatient (CLI) | payer OTHER ==
[2019-02-26 07:20] LABS: BASO % 0.3 % (0.0-1.0); EOS # 0.5 10^3/uL (0.0-0.50); EOS % 7.3 % (0.0-3.0); HEMATOCRIT 45.8 % (42.0-52.0); HEMOGLOBIN 14.9 g/dl (13.5-17.5); LYMPH # 3.1 10^3/uL (1.5-4.5); LYMPH % 47.5 % (24.0-44.0); MEAN CORPUSCULAR HEMOGLOBIN 27.2 pg (27.0-33.0); MEAN CORPUSCULAR HGB CONC 32.5 g/dl (32.0-36.5); MEAN CORPUSCULAR VOLUME 83.7 fl (80.0-96.0); MONO # 0.5 10^3/uL (0.0-0.8); MONO % 8.1 % (0.0-5.0); NEUTROPHILS # 2.4 10^3/uL (1.8-7.7); NEUTROPHILS % 36.6 % (36.0-66.0); PLATELET COUNT, AUTOMATED 252 10^3/uL (150-450); RED BLOOD COUNT 5.47 10^6/uL (4.30-6.10); WHITE BLOOD COUNT 6.6 10^3/uL (4.0-10.0)
[2019-02-26 07:52] LABS: ALBUMIN 3.9 GM/DL (3.2-5.2); ALT/SGPT 46 U/L (12-78); BILIRUBIN,TOTAL 0.2 MG/DL (0.2-1.0); BLOOD UREA NITROGEN 19 MG/DL (7-18); CALCIUM LEVEL 9.6 MG/DL (8.5-10.1); CARBON DIOXIDE LEVEL 30 MEQ/L (21-32); CHLORIDE LEVEL 100 MEQ/L (98-107); CHOLESTEROL LEVEL 158 MG/DL (<200); CHOLESTEROL RISK RATIO 3.361 (<5); CREATININE FOR GFR 1.04 MG/DL (0.70-1.30); FREE T4 0.88 NG/DL (0.76-1.46); GLOMERULAR FILTRATION RATE > 60.0 (>60); GLUCOSE, FASTING 237 MG/DL (70-100); HDL CHOLESTEROL 47 MG/DL (>40); LDL CHOLESTEROL 81 MG/DL (<100); NON-HDL-C 111 MG/DL; POTASSIUM SERUM 4.4 MEQ/L (3.5-5.1); SODIUM LEVEL 136 MEQ/L (136-145); TOTAL PROTEIN 7.4 GM/DL (6.4-8.2); TRIGLYCERIDES LEVEL 149 MG/DL (<150)
[2019-02-26 09:31] LABS: HEMOGLOBIN A1c 11.3 %
[2019-02-27 11:43] LABS: CORTISOL AM 3.2 UG/DL (4.3-22.4)
[2019-02-28 10:12] LABS: TESTOSTERONE FREE (DIRECT) 9.3 pg/mL (6.8-21.5)
== END ==
LOC: M LAB 06:44
DX: Z13.89 Encounter for screening for other disorder (principal); Z79.899 Other long term (current) drug therapy

== ENCOUNTER 2019-03-21 06:10 | Emergency (ER) | payer OTHER ==
[~2019-03-21] VITALS: Ht 185.4 cm; Wt 90.9 kg
[2019-03-21] MEDS ORDERED: ROZE8TAB16 (06:17)
[2019-03-21] MEDS ORDERED: QUET1TAB7 (06:17)
[2019-03-21] MEDS ORDERED: ROZE8TAB16 PO (07:17)
[2019-03-21] MEDS ORDERED: QUET200T2 PO (07:17)
[2019-03-21] MEDS ORDERED: QUET1TAB7 PO (07:17)
[2019-03-21 07:32] VITALS: BP 165/102
== END 2019-03-21 07:54 | disposition home or self-care (01) ==
LOC: M ED 06:10
DX: Z76.0 Encounter for issue of repeat prescription (principal); E11.9 Type 2 diabetes mellitus without complications; Z79.899 Other long term (current) drug therapy; Z88.8 Allergy status to other drugs, medicaments and biological substances

== ENCOUNTER 2019-03-28 15:43 | Emergency (ER) | payer OTHER ==
[~2019-03-28] VITALS: Ht 182.9 cm; Wt 92.6 kg
[~2019-03-28 15:43] MED LIST changes: +QUET1TAB7; +QUET1TAB7 PO; +QUET200T2 PO; +ROZE8TAB16
[2019-03-28] MEDS ORDERED: BUSP15TA47 PO (16:57)
[2019-03-28] MEDS ORDERED: SERO200T PO (16:58)
[2019-03-28] MEDS ORDERED: ROZE8TAB16 PO (16:58)
[2019-03-28] MEDS ORDERED: SERO1TAB3 PO (16:58)
[2019-03-28 17:10] VITALS: BP 144/85
== END 2019-03-28 17:19 | disposition home or self-care (01) ==
LOC: M ED 15:43
DX: Z76.0 Encounter for issue of repeat prescription (principal); Z79.899 Other long term (current) drug therapy; Z88.8 Allergy status to other drugs, medicaments and biological substances

== ENCOUNTER 2019-06-12 16:59 | Emergency (ER) | payer OTHER ==
[~2019-06-12] VITALS: Ht 185.4 cm; Wt 90.9 kg
[2019-06-12 16:59] VITALS: BP 182/115
[2019-06-12] MEDS ORDERED: LISI10TA4 (17:19)
[2019-06-12] MEDS ORDERED: GLYB5TA (17:19)
[2019-06-12] MEDS ORDERED: AMBI10TA PO (17:54)
== END 2019-06-12 18:12 | disposition home or self-care (01) ==
LOC: M ED 16:59
DX: Z76.0 Encounter for issue of repeat prescription (principal); G47.00 Insomnia, unspecified; F33.9 Major depressive disorder, recurrent, unspecified; F41.9 Anxiety disorder, unspecified; Z79.899 Other long term (current) drug therapy; F10.10 Alcohol abuse, uncomplicated; F12.20 Cannabis dependence, uncomplicated; Z88.8 Allergy status to other drugs, medicaments and biological substances

== ENCOUNTER 2019-06-18 14:54 | Emergency (ER) | payer OTHER ==
[~2019-06-18] VITALS: Ht 185.4 cm; Wt 90.9 kg
[~2019-06-18 14:54] MED LIST changes: +GLYB5TA; +LISI10TA4
[2019-06-18] MEDS ORDERED: SIMV20TA2 (18:04)
[2019-06-18] MEDS ORDERED: ZOLP10TA2 PO (18:43)
[2019-06-18 18:55] VITALS: BP 148/83
== END 2019-06-18 19:12 | disposition home or self-care (01) ==
LOC: M ED 14:54
DX: Z76.0 Encounter for issue of repeat prescription (principal); G47.00 Insomnia, unspecified; Z79.899 Other long term (current) drug therapy; Z79.84 Long term (current) use of oral hypoglycemic drugs; Z88.8 Allergy status to other drugs, medicaments and biological substances

== ENCOUNTER 2019-06-26 07:12 | Emergency (ER) | payer OTHER ==
[~2019-06-26] VITALS: Ht 185.4 cm; Wt 92.7 kg
[~2019-06-26 07:12] MED LIST changes: +SIMV20TA2
[2019-06-26 07:13] VITALS: BP 179/112
[2019-06-26] MEDS ORDERED: SERO200T PO ×2 (07:51→08:01)
[2019-06-26] MEDS ORDERED: AMBI10TA PO (07:51)
== END 2019-06-26 08:08 | disposition home or self-care (01) ==
LOC: M ED 07:12
DX: Z76.0 Encounter for issue of repeat prescription (principal); E11.9 Type 2 diabetes mellitus without complications; F32.9 Major depressive disorder, single episode, unspecified; F41.9 Anxiety disorder, unspecified; F10.10 Alcohol abuse, uncomplicated; F12.20 Cannabis dependence, uncomplicated; G47.00 Insomnia, unspecified; Z88.8 Allergy status to other drugs, medicaments and biological substances; Z79.84 Long term (current) use of oral hypoglycemic drugs; Z79.899 Other long term (current) drug therapy

== ENCOUNTER → 2019-07-04 | Outpatient (REF) | payer OTHER ==
[~2019-07-04] MED LIST changes: -SIMV20TA2; +SIMV20TA22
== END ==
LOC: M SFHCLERA 10:33
PROVIDERS: ATTEND Family Medicine
DX: Z53.9 Procedure and treatment not carried out, unspecified reason (principal)

== ENCOUNTER 2019-08-02 00:31 | Emergency (ER) | payer OTHER ==
[~2019-08-02] VITALS: Ht 185.4 cm; Wt 90.9 kg
[2019-08-02 00:32] VITALS: BP 142/81
== END 2019-08-02 03:58 | disposition left against medical advice (07) ==
LOC: M ED 00:31
DX: Z53.29 Procedure and treatment not carried out because of patient's decision for other reasons (principal)

== ENCOUNTER → 2019-08-09 | Outpatient (CLI) | payer OTHER ==
[2019-08-09 07:02] LABS: BASO % 0.4 % (0.0-1.0); EOS # 0.3 10^3/uL (0.0-0.5); EOS % 3.4 % (0.0-3.0); HEMATOCRIT 47.1 % (42.0-52.0); HEMOGLOBIN 15.9 g/dl (13.5-17.5); LYMPH # 3.4 10^3/uL (1.5-5.0); LYMPH % 45.9 % (24.0-44.0); MEAN CORPUSCULAR HEMOGLOBIN 28.2 pg (27.0-33.0); MEAN CORPUSCULAR HGB CONC 33.8 g/dl (32.0-36.5); MEAN CORPUSCULAR VOLUME 83.5 fl (80.0-96.0); MONO # 0.7 10^3/uL (0.0-0.8); MONO % 9.6 % (0.0-5.0); NEUTROPHILS % 40.6 % (36.0-66.0); PLATELET COUNT, AUTOMATED 282 10^3/uL (150-450); RED BLOOD COUNT 5.64 10^6/uL (4.30-6.10); WHITE BLOOD COUNT 7.4 10^3/uL (4.0-10.0)
[2019-08-09 07:45] LABS: AMPHETAMINES URINE REFLEX NEGATIVE (NEGATIVE); BARBITURATES URINE REFLEX NEGATIVE (NEGATIVE); BENZODIAZEPINES URINE REFLEX NEGATIVE (NEGATIVE); CANNABINOIDS URINE REFLEX NEGATIVE (NEGATIVE); COCAINE METABOLITE URINE REFLE NEGATIVE (NEGATIVE); CREATININE, URINE 50.2 MG/DL; MALB URINE SIEMENS 23.1 MG/L; METHADONE URINE REFLEX NEGATIVE (NEGATIVE); OPIATES URINE REFLEX NEGATIVE (NEGATIVE); PHENCYCLIDINE URINE REFLEX NEGATIVE (NEGATIVE)
[2019-08-09 08:06] LABS: ALBUMIN 4.3 GM/DL (3.2-5.2); ALT/SGPT 32 U/L (12-78); BILIRUBIN,TOTAL 0.4 MG/DL (0.2-1.0); BLOOD UREA NITROGEN 20 MG/DL (7-18); CALCIUM LEVEL 9.5 MG/DL (8.5-10.1); CARBON DIOXIDE LEVEL 26 MEQ/L (21-32); CHLORIDE LEVEL 94 MEQ/L (98-107); CHOLESTEROL LEVEL 254 MG/DL (<200); CHOLESTEROL RISK RATIO 5.521 (<5); CREATININE FOR GFR 1.18 MG/DL (0.70-1.30); GLOMERULAR FILTRATION RATE > 60.0 (>60); GLUCOSE, FASTING 411 MG/DL (70-100); HDL CHOLESTEROL 46 MG/DL (>40); LDL CHOLESTEROL 138 MG/DL (<100); NON-HDL-C 208 MG/DL; POTASSIUM SERUM 4.7 MEQ/L (3.5-5.1); SODIUM LEVEL 130 MEQ/L (136-145); TOTAL PROTEIN 8.3 GM/DL (6.4-8.2); TRIGLYCERIDES LEVEL 351 MG/DL (<150)
== END ==
LOC: M LAB 06:05
PROVIDERS: ATTEND Family Medicine
DX: F39 Unspecified mood [affective] disorder (principal); E11.9 Type 2 diabetes mellitus without complications

== ENCOUNTER 2019-09-11 20:08 | Emergency (ER) | payer OTHER ==
[~2019-09-11] VITALS: Ht 185.4 cm; Wt 90.9 kg
[~2019-09-11 20:08] MED LIST changes: +QUET100T2 PO; -QUET1TAB8 PO
[2019-09-11] MEDS ORDERED: HumaLOG INSULIN (NovoLOG) PER UNIT SC STA (20:50)
[2019-09-11] MEDS ORDERED: metFORMIN (GLUCOPHAGE) 1000 MG TABLET PO ONE (21:00)
[2019-09-11] MEDS ORDERED: LEVEMIR (INSULIN DETEMIR) 1 UNITS/0.01ML SC ONE (21:00)
[2019-09-11 22:05] VITALS: BP 168/93
[2019-09-11] MEDS: HumaLOG INSULIN (NovoLOG) PER UNIT SC STA ×2 (22:48→23:05)
== END 2019-09-11 23:19 | disposition home or self-care (01) ==
LOC: M ED 20:08
DX: E11.9 Type 2 diabetes mellitus without complications (principal); Z79.899 Other long term (current) drug therapy; Z79.84 Long term (current) use of oral hypoglycemic drugs; Z88.8 Allergy status to other drugs, medicaments and biological substances

== ENCOUNTER → 2019-12-04 | Outpatient (REF) | payer OTHER | LOC: M LAB REF 14:52 | PROVIDERS: ATTEND Otolaryngology | DX: J34.89 Other specified disorders of nose and nasal sinuses (principal) ==

== ENCOUNTER → 2020-06-08 | Outpatient (CLI) | payer OTHER ==
[2020-06-08 08:35] LABS: BASO % 0.3 % (0.0-1.0); EOS # 0.2 10^3/uL (0.0-0.5); HEMATOCRIT 48.3 % (42.0-52.0); HEMOGLOBIN 15.3 g/dl (13.5-17.5); LYMPH # 3.4 10^3/uL (1.5-5.0); LYMPH % 48.1 % (24.0-44.0); MEAN CORPUSCULAR HEMOGLOBIN 26.8 pg (27.0-33.0); MEAN CORPUSCULAR HGB CONC 31.7 g/dl (32.0-36.5); MEAN CORPUSCULAR VOLUME 84.6 fl (80.0-96.0); MONO # 0.7 10^3/uL (0.0-0.8); MONO % 9.7 % (0.0-5.0); NEUTROPHILS # 2.7 10^3/uL (1.5-8.5); NEUTROPHILS % 38.8 % (36.0-66.0); PLATELET COUNT, AUTOMATED 222 10^3/uL (150-450); RED BLOOD COUNT 5.71 10^6/uL (4.30-6.10)
[2020-06-08 09:04] LABS: BLOOD UREA NITROGEN 21 MG/DL (7-18); CARBON DIOXIDE LEVEL 28 MEQ/L (21-32); CHLORIDE LEVEL 97 MEQ/L (98-107); CHOLESTEROL LEVEL 181 MG/DL (<200); CREATININE FOR GFR 1.21 MG/DL (0.70-1.30); GLOMERULAR FILTRATION RATE > 60.0 (>60); GLUCOSE, FASTING 211 MG/DL (70-100); HDL CHOLESTEROL 50 MG/DL (>40); LDL CHOLESTEROL 95 MG/DL (<100); NON-HDL-C 131 MG/DL; POTASSIUM SERUM 4.1 MEQ/L (3.5-5.1); SODIUM LEVEL 134 MEQ/L (136-145); TRIGLYCERIDES LEVEL 180 MG/DL (<150)
[2020-06-08 09:10] LABS: MAU/CREAT RATIO 137.3 MCG/MG (0.0-30.0)
== END ==
LOC: M LAB 05:13
PROVIDERS: ATTEND Family Medicine
DX: E11.65 Type 2 diabetes mellitus with hyperglycemia (principal)

== ENCOUNTER 2020-08-23 12:47 | Emergency (ER) | payer OTHER ==
[~2020-08-23] VITALS: Ht 185.4 cm; Wt 104.9 kg
[~2020-08-23 12:47] MED LIST changes: -GLYB5TA; -GLYB5TA PO; +GLYB5TAB6; +GLYB5TAB6 PO; +LISI10TA22; +LISI10TA22 PO; -LISI10TA4; -LISI10TA4 PO; -QUET1TAB7; -QUET1TAB7 PO; +QUET25TA3; +QUET25TA3 PO
[2020-08-23] MEDS ORDERED: ACETAMINOPHEN 325 MG TAB PO ONE (13:30)
[2020-08-23] MEDS ORDERED: CYCLOBENZAPRINE 5MG TABLET PO ONE (13:30)
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
[2020-08-23 15:18] VITALS: BP 151/82
== END 2020-08-23 15:19 | disposition home or self-care (01) ==
LOC: M ED 12:47
DX: S13.4XXA Sprain of ligaments of cervical spine, initial encounter (principal); V49.49XA Driver injured in collision with other motor vehicles in traffic accident, initial encounter; Y92.410 Unspecified street and highway as the place of occurrence of the external cause; E11.9 Type 2 diabetes mellitus without complications; I10 Essential (primary) hypertension; E78.5 Hyperlipidemia, unspecified; I25.10 Atherosclerotic heart disease of native coronary artery without angina pectoris; Z79.899 Other long term (current) drug therapy; Z79.84 Long term (current) use of oral hypoglycemic drugs; Z88.8 Allergy status to other drugs, medicaments and biological substances; F17.210 Nicotine dependence, cigarettes, uncomplicated

== ENCOUNTER → 2020-09-16 | Outpatient (CLI) | payer OTHER ==
[2020-09-16 15:23] LABS: BLOOD UREA NITROGEN 9 MG/DL (7-18); CALCIUM LEVEL 9.4 MG/DL (8.5-10.1); CARBON DIOXIDE LEVEL 32 MEQ/L (21-32); CHLORIDE LEVEL 99 MEQ/L (98-107); CREATININE FOR GFR 1.02 MG/DL (0.70-1.30); GLOMERULAR FILTRATION RATE > 60.0 (>60); GLUCOSE, FASTING 230 MG/DL (70-100); POTASSIUM SERUM 4.5 MEQ/L (3.5-5.1); SODIUM LEVEL 136 MEQ/L (136-145)
[2020-09-16 15:56] LABS: HEMOGLOBIN A1c 10.6 %
== END ==
LOC: M LAB 14:07
PROVIDERS: ATTEND Family Medicine
DX: E11.65 Type 2 diabetes mellitus with hyperglycemia (principal)

== ENCOUNTER 2020-10-09 18:39 | Emergency (ER) | payer OTHER ==
[~2020-10-09] VITALS: Ht 185.4 cm; Wt 103.4 kg
[2020-10-09 18:47] VITALS: BP 166/97
[2020-10-09] MEDS ORDERED: ATOR40TA75 (18:51)
[2020-10-09] MEDS ORDERED: LIDOCAINE 5% (LIDODERM) PATCH TD ONE (21:10)
[2020-10-09] MEDS ORDERED: methocarbamoL 750 MG TAB PO ONE (21:10)
[2020-10-09] MEDS ORDERED: NAPROXEN 250 MG TAB PO ONE (21:10)
[2020-10-09] MEDS ORDERED: NAPR-837 PO (21:12)
[2020-10-09] MEDS ORDERED: ASPE4PAD TOP (21:12)
[2020-10-09] MEDS ORDERED: ROBA750T4 PO (21:12)
[2020-10-10] MEDS ORDERED: **NOTE PATIENT COMMENT** MISC XX ONE (09:10)
== END 2020-10-09 21:33 | disposition home or self-care (01) ==
LOC: M ED 18:39
DX: M54.6 Pain in thoracic spine (principal); I10 Essential (primary) hypertension; E78.5 Hyperlipidemia, unspecified; Z79.899 Other long term (current) drug therapy; Z88.8 Allergy status to other drugs, medicaments and biological substances

== ENCOUNTER → 2020-10-15 | Outpatient (CLI) | payer OTHER ==
[~2020-10-15] MED LIST changes: +ASPE4PAD TOP; +ATOR40TA75; +ROBA750T4 PO
--- NOTE | 2020-10-16 03:13 | REP ---
INDICATION: LOW BACK PAIN. COMPARISON: None. TECHNIQUE: AP, lateral, swimmer's views of the thoracic spine FINDINGS: Alignment and kyphosis maintained. No evidence for acute fracture/compression injury or subluxation. Minimal generalized age-related changes are appreciated without significant overt degenerative findings. IMPRESSION: Essentially age-appropriate examination. <Electronically signed by Inder Conner > 10/16/20 [id number]
--- NOTE | 2020-10-16 03:23 | REP ---
INDICATION: LOW BACK PAIN. COMPARISON: None. TECHNIQUE: AP, lateral, flexion/extension, bilateral oblique and coned-down views of the lumbosacral spine FINDINGS: There is chronic bilateral pars defects (bilateral spondylolysis) at the L4 level with chronic anterolisthesis of approximately 7.8 mm, and endplate sclerosis and disc space narrowing involving L4-5. appear relatively stable on flexion/extension. Remainder of the examination is age-appropriate and normal. IMPRESSION: Chronic spondylolysis and spondylolisthesis at the L4-5 level with associated disc space degenerative changes. <Electronically signed by Inder Conner > 10/16/20 [id number]
== END ==
LOC: M SOG 10-13 13:15
PROVIDERS: ATTEND Orthopaedic Surgery Sports Medicine
DX: M43.16 Spondylolisthesis, lumbar region (principal)

== ENCOUNTER 2020-10-27 12:01 | Outpatient (RCR) | payer OTHER | END 2020-10-28 | LOC: M PT 12:01 | PROVIDERS: ATTEND Orthopaedic Surgery Sports Medicine | DX: M43.16 Spondylolisthesis, lumbar region (principal) ==

== ENCOUNTER → 2020-12-01 | Outpatient (CLI) | payer OTHER ==
[2020-12-01 17:34] LABS: BASO % 0.6 % (0.0-1.0); EOS # 0.3 10^3/uL (0.0-0.5); EOS % 4.6 % (0.0-3.0); HEMOGLOBIN 14.4 g/dl (13.5-17.5); LYMPH # 2.5 10^3/uL (1.5-5.0); LYMPH % 40.5 % (24.0-44.0); MEAN CORPUSCULAR HEMOGLOBIN 27.4 pg (27.0-33.0); MEAN CORPUSCULAR VOLUME 85.7 fl (80.0-96.0); MONO # 0.7 10^3/uL (0.0-0.8); MONO % 10.9 % (2.0-8.0); NEUTROPHILS # 2.7 10^3/uL (1.5-8.5); NEUTROPHILS % 43.1 % (36.0-66.0); PLATELET COUNT, AUTOMATED 239 10^3/uL (150-450); RED BLOOD COUNT 5.25 10^6/uL (4.30-6.10); WHITE BLOOD COUNT 6.2 10^3/uL (4.0-10.0)
[2020-12-01 18:07] LABS: ALBUMIN 4.3 GM/DL (3.2-5.2); ALT/SGPT 56 U/L (12-78); BILIRUBIN,TOTAL 0.3 MG/DL (0.2-1.0); BLOOD UREA NITROGEN 18 MG/DL (7-18); CALCIUM LEVEL 9.3 MG/DL (8.5-10.1); CARBON DIOXIDE LEVEL 30 MEQ/L (21-32); CHLORIDE LEVEL 103 MEQ/L (98-107); CHOLESTEROL LEVEL 127 MG/DL (<200); CHOLESTEROL RISK RATIO 2.228 (<5); CREATININE FOR GFR 1.01 MG/DL (0.70-1.30); GLOMERULAR FILTRATION RATE > 60.0 (>60); GLUCOSE, FASTING 189 MG/DL (70-100); HDL CHOLESTEROL 57 MG/DL (>40); LDL CHOLESTEROL 59 MG/DL (<100); MAGNESIUM LEVEL 2.3 MG/DL (1.8-2.4); NON-HDL-C 70 MG/DL; POTASSIUM SERUM 4.7 MEQ/L (3.5-5.1); SODIUM LEVEL 137 MEQ/L (136-145); TOTAL PROTEIN 7.7 GM/DL (6.4-8.2); TRIGLYCERIDES LEVEL 56 MG/DL (<150)
[2020-12-01 20:55] LABS: HEMOGLOBIN A1c 8.5 %
== END ==
LOC: M LAB 16:49
PROVIDERS: ATTEND Nurse Practitioner Adult Health
DX: R74.8 Abnormal levels of other serum enzymes (principal)

== ENCOUNTER → 2020-12-09 | Outpatient (REF) ==
--- NOTE | 2020-12-10 04:00 | REPPI ---
INDICATION: DISABILITY DETERMINATION COMPARISON: None. TECHNIQUE: AP, lateral, bilateral oblique views right foot. FINDINGS: Hallux valgus deformity at the 1st metatarsophalangeal joint is appreciated along with periarticular sclerosis, joint space narrowing, and subtle marginal spurring. Remainder of the examination is relatively age-appropriate. No acute fracture or dislocation. IMPRESSION: Hallux valgus deformity and degenerative changes at the 1st MTP joint.. No acute fracture or dislocation. <Electronically signed by Inder Conner > 12/10/20 [id number]
== END ==
LOC: M PLAIMG 12:13
PROVIDERS: ATTEND Internal Medicine
DX: Z02.71 Encounter for disability determination (principal); M20.11 Hallux valgus (acquired), right foot

== ENCOUNTER → 2020-12-19 | Outpatient (CLI) | payer OTHER ==
--- NOTE | 2020-12-19 16:42 | REP ---
INDICATION: SPONDYLOLISTHESIS. COMPARISON: Comparison radiographs of the lumbar spine and thoracic spine are reviewed from October 15, 2020.. TECHNIQUE: Sagittal and axial T1 and T2-weighted scans are acquired in the usual fashion with and without fat saturation. Sequences include spin echo, turbo spin-echo, and STIR imaging sequences. FINDINGS: Based on the AP view of the thoracic spine, there appear to be hypoplastic ribs bilaterally at the T12 vertebral body. Utilizing this is a frame reference, I believe the lumbar spine radiographs demonstrate bilateral pars defects at L3. And spondylolisthesis at L3-4. This will be labeling convention utilized for the MRI lumbar spine report. Lumbar vertebral body heights are preserved. No bony destructive lesion is seen. The tip of the conus medullaris is normal in position and appearance at at T11-12. No extra vertebral abnormality is observed. Axial and sagittal images taken at T12-L1, L1-L2, and L2-L3 show no evidence of disc protrusion, central canal stenosis, or foraminal narrowing. At L3-4, there is degenerative disc narrowing and decreased signal intensity on T1 and T2 weighted scans. There is a broad-based central/right central focal disc protrusion indenting the ventral margin of the thecal sac. There is bilateral L3 spondylolysis as seen on radiographs with a 6 mm grade 1 L3-4 spondylolisthesis. There is mild neural foraminal narrowing, right greater than left due to disc bulging and spondylolisthesis. No spinal stenosis. There is some facet hypertrophy. At the L4-5, there is minimal facet hypertrophy. No disc protrusion or central canal stenosis seen. At L5-S1 there is no disc protrusion. The L5 transverse processes are partially sacralized as seen on radiographs. IMPRESSION: There is bilateral spondylolysis at L3 with grade 1 6 mm L3-4 spondylolisthesis. No spinal stenosis. Mild bilateral foraminal narrowing, right greater than left due to diffuse disc bulging. Please see level labeling comments above. There are hypoplastic ribs at what is felt to be T12 and the transverse processes at L5 are somewhat sacralized. <Electronically signed by Shay Higginbotham > 12/19/20 [id number]
== END ==
LOC: M RAD 15:31
PROVIDERS: ATTEND Orthopaedic Surgery Sports Medicine
DX: M43.16 Spondylolisthesis, lumbar region (principal)

== ENCOUNTER → 2020-12-26 | Outpatient (CLI) | payer OTHER ==
[2020-12-26 10:06] LABS: INR 0.91; PROTHROMBIN TIME 12.4 SECONDS (12.5-14.3)
[2020-12-26 10:07] LABS: PARTIAL THROMBOPLASTIN TIME 24.6 SECONDS (24.2-38.5)
== END ==
LOC: M LAB 09:34
PROVIDERS: ATTEND Nurse Practitioner Family
DX: Z01.818 Encounter for other preprocedural examination (principal); E11.9 Type 2 diabetes mellitus without complications; E87.5 Hyperkalemia

== ENCOUNTER → 2021-09-23 | Outpatient (CLI) | payer OTHER ==
[~2021-09-23] MED LIST changes: +QUET1TAB17; +QUET1TAB17 PO; -QUET25TA3; -QUET25TA3 PO
[2021-09-23 09:46] LABS: BASO % 0.5 % (0.0-1.0); EOS # 0.2 10^3/uL (0.0-0.5); EOS % 3.2 % (0.0-3.0); HEMATOCRIT 45.8 % (42.0-52.0); HEMOGLOBIN 14.8 g/dl (13.5-17.5); LYMPH # 2.9 10^3/uL (1.5-5.0); LYMPH % 46.4 % (24.0-44.0); MEAN CORPUSCULAR HGB CONC 32.3 g/dl (32.0-36.5); MEAN CORPUSCULAR VOLUME 83.4 fl (80.0-96.0); MONO # 0.7 10^3/uL (0.0-0.8); MONO % 11.8 % (2.0-8.0); NEUTROPHILS # 2.3 10^3/uL (1.5-8.5); NEUTROPHILS % 37.8 % (36.0-66.0); PLATELET COUNT, AUTOMATED 235 10^3/uL (150-450); RED BLOOD COUNT 5.49 10^6/uL (4.30-6.10); WHITE BLOOD COUNT 6.2 10^3/uL (4.0-10.0)
[2021-09-23 10:15] LABS: ALBUMIN 4.3 GM/DL (3.2-5.2); ALT/SGPT 46 U/L (12-78); BILIRUBIN,TOTAL 0.6 MG/DL (0.2-1.0); BLOOD UREA NITROGEN 22 MG/DL (7-18); CALCIUM LEVEL 9.5 MG/DL (8.5-10.1); CARBON DIOXIDE LEVEL 29 MEQ/L (21-32); CHLORIDE LEVEL 104 MEQ/L (98-107); CHOLESTEROL LEVEL 118 MG/DL (<200); CREATININE FOR GFR 1.52 MG/DL (0.70-1.30); GLOMERULAR FILTRATION RATE > 60.0 (>60); GLUCOSE, FASTING 185 MG/DL (70-100); HDL CHOLESTEROL 47 MG/DL (>40); HEMOGLOBIN A1c 9.3 %; LDL CHOLESTEROL 54 MG/DL (<100); NON-HDL-C 71 MG/DL; PROSTATIC SPECIFIC AG MONITOR 0.41 NG/ML (< 4.00); SODIUM LEVEL 139 MEQ/L (136-145); TOTAL PROTEIN 8.1 GM/DL (6.4-8.2); TRIGLYCERIDES LEVEL 84 MG/DL (<150)
== END ==
LOC: M LAB 08:10
PROVIDERS: ATTEND Nurse Practitioner Family
DX: Z12.5 Encounter for screening for malignant neoplasm of prostate (principal); E11.9 Type 2 diabetes mellitus without complications

== ENCOUNTER → 2022-02-22 | Outpatient (CLI) | payer OTHER ==
[2022-02-22 16:01] LABS: BASO % 0.4 % (0.0-1.0); EOS # 0.2 10^3/uL (0.0-0.5); EOS % 3.6 % (0.0-3.0); HEMATOCRIT 40.5 % (42.0-52.0); LYMPH # 1.9 10^3/uL (1.5-5.0); LYMPH % 39.7 % (24.0-44.0); MEAN CORPUSCULAR HEMOGLOBIN 27.5 pg (27.0-33.0); MEAN CORPUSCULAR HGB CONC 32.1 g/dl (32.0-36.5); MEAN CORPUSCULAR VOLUME 85.8 fl (80.0-96.0); MONO # 0.5 10^3/uL (0.0-0.8); MONO % 9.9 % (2.0-8.0); NEUTROPHILS # 2.2 10^3/uL (1.5-8.5); NEUTROPHILS % 46.2 % (36.0-66.0); PLATELET COUNT, AUTOMATED 231 10^3/uL (150-450); RED BLOOD COUNT 4.72 10^6/uL (4.30-6.10); WHITE BLOOD COUNT 4.7 10^3/uL (4.0-10.0)
[2022-02-22 16:15] LABS: HEMOGLOBIN A1c 8.8 %
[2022-02-22 18:27] LABS: ALBUMIN 3.9 GM/DL (3.2-5.2); ALT/SGPT 50 U/L (12-78); BILIRUBIN,TOTAL 0.3 MG/DL (0.2-1.0); BLOOD UREA NITROGEN 21 MG/DL (7-18); CALCIUM LEVEL 9.8 MG/DL (8.5-10.1); CARBON DIOXIDE LEVEL 26 MEQ/L (21-32); CHLORIDE LEVEL 105 MEQ/L (98-107); CHOLESTEROL LEVEL 138 MG/DL (<200); CHOLESTEROL RISK RATIO 2.603 (<5); CREATININE FOR GFR 1.07 MG/DL (0.70-1.30); GLOMERULAR FILTRATION RATE > 60.0 (>60); GLUCOSE, FASTING 174 MG/DL (70-100); HDL CHOLESTEROL 53 MG/DL (>40); LDL CHOLESTEROL 72 MG/DL (<100); NON-HDL-C 85 MG/DL; SODIUM LEVEL 137 MEQ/L (136-145); THYROID STIMULATING HORMONE 0.375 uIU/ML (0.358-3.740); TOTAL PROTEIN 7.2 GM/DL (6.4-8.2); TRIGLYCERIDES LEVEL 66 MG/DL (<150)
[2022-02-22 19:22] LABS: MAGNESIUM LEVEL 1.8 MG/DL (1.8-2.4); POTASSIUM SERUM 4.8 MEQ/L (3.5-5.1)
[2022-02-23 12:20] LABS: PROSTATIC SPECIFIC AG MONITOR 0.35 NG/ML (< 4.00)
== END ==
LOC: M LAB 15:04
PROVIDERS: ATTEND Nurse Practitioner Family
DX: Z00.01 Encounter for general adult medical examination with abnormal findings (principal); E11.9 Type 2 diabetes mellitus without complications; I10 Essential (primary) hypertension; E78.00 Pure hypercholesterolemia, unspecified; E83.42 Hypomagnesemia; Z12.5 Encounter for screening for malignant neoplasm of prostate; Z13.29 Encounter for screening for other suspected endocrine disorder

== ENCOUNTER → 2022-06-27 | Outpatient (CLI) | payer OTHER ==
[2022-06-27 07:10] LABS: BASO % 0.6 % (0.0-1.0); EOS # 0.3 10^3/uL (0.0-0.5); HEMOGLOBIN 13.3 g/dl (13.5-17.5); LYMPH # 2.8 10^3/uL (1.5-5.0); LYMPH % 51.7 % (24.0-44.0); MEAN CORPUSCULAR HEMOGLOBIN 27.8 pg (27.0-33.0); MEAN CORPUSCULAR HGB CONC 32.4 g/dl (32.0-36.5); MEAN CORPUSCULAR VOLUME 85.6 fl (80.0-96.0); MONO # 0.5 10^3/uL (0.0-0.8); MONO % 9.6 % (2.0-8.0); NEUTROPHILS # 1.7 10^3/uL (1.5-8.5); NEUTROPHILS % 32.1 % (36.0-66.0); PLATELET COUNT, AUTOMATED 297 10^3/uL (150-450); RED BLOOD COUNT 4.79 10^6/uL (4.30-6.10); WHITE BLOOD COUNT 5.3 10^3/uL (4.0-10.0)
[2022-06-27 07:36] LABS: ALKALINE PHOSPHATASE 55 U/L (46-116); ALT/SGPT 41 U/L (7.0-40); AST/SGOT 29 U/L (<34); BILIRUBIN,TOTAL 0.2 MG/DL (0.3-1.2); BLOOD UREA NITROGEN 18 MG/DL (9-23); CALCIUM LEVEL 10.1 MG/DL (8.5-10.1); CARBON DIOXIDE LEVEL 29 MMOL/L (20-31); CHLORIDE LEVEL 100 MMOL/L (98-107); CHOLESTEROL LEVEL 140 MG/DL (<200); CHOLESTEROL RISK RATIO 2.52 (<5); CREATININE FOR GFR 0.84 MG/DL (0.70-1.30); GLOMERULAR FILTRATION RATE > 60.0 (>60); GLUCOSE, FASTING 193 MG/DL (60-100); HDL CHOLESTEROL 55.5 MG/DL (>40); HEMOGLOBIN A1c 7.4 % (4.0-6.0); LDL CHOLESTEROL 61.5 MG/DL (<100); MAGNESIUM LEVEL 1.9 MG/DL (1.8-2.4); NON-HDL-C 85 MG/DL; POTASSIUM SERUM 4.3 MMOL/L (3.5-5.1); SODIUM LEVEL 137 MMOL/L (136-145); TOTAL PROTEIN 7.1 G/DL (5.7-8.2); TRIGLYCERIDES LEVEL 115 MG/DL (<150)
== END ==
LOC: M LAB 06:16
PROVIDERS: ATTEND Nurse Practitioner Family
DX: E78.00 Pure hypercholesterolemia, unspecified (principal); E11.9 Type 2 diabetes mellitus without complications; I10 Essential (primary) hypertension; E83.42 Hypomagnesemia; Z13.29 Encounter for screening for other suspected endocrine disorder

== ENCOUNTER → 2023-01-25 | Outpatient (CLI) | payer OTHER | LOC: M SOG 11:55 | PROVIDERS: ATTEND Orthopaedic Surgery | DX: M54.50 Low back pain, unspecified (principal) ==

== ENCOUNTER 2023-04-06 09:29 | Emergency (ER) | payer OTHER ==
[~2023-04-06] VITALS: Ht 185.4 cm; Wt 97.7 kg
[2023-04-06 09:30] VITALS: BP 176/99; TEMP 97.1; O2SAT 97
== END 2023-04-06 10:55 | disposition left against medical advice (07) ==
LOC: M ED 09:29
DX: R47.89 Other speech disturbances (principal); E11.9 Type 2 diabetes mellitus without complications; Z88.8 Allergy status to other drugs, medicaments and biological substances; Z79.899 Other long term (current) drug therapy; Z79.84 Long term (current) use of oral hypoglycemic drugs

== ENCOUNTER 2025-03-11 17:19 | Emergency (ER) | payer OTHER ==
[~2025-03-11 17:19] MED LIST changes: -AMBI10TA PO; +ZOLP-533 PO
[2025-03-11 17:20] VITALS: TEMP 98.2
[2025-03-11 20:30] VITALS: BP 145/93; O2SAT 99
[2025-03-11] MEDS: LORazepam 1 MG TAB PO STA (23:42)
[2025-03-12 02:56] LABS: KETONE, URINE AUTO RFX NEGATIVE (NEGATIVE); LEUKOCYTE ESTERASE UR AUTO RFX NEGATIVE (NEGATIVE); MUCUS, URINE RFX SMALL (NEGATIVE); NITRITE, URINE AUTO RFX NEGATIVE (NEGATIVE); RBC, URINE AUTO RFX 0 /HPF (0-3); SQUAM EPITHELIAL CELL UR AURFX 0 /HPF (0-6); WBC, URINE AUTO RFX 0 /HPF (0-3)
== END 2025-03-12 03:33 | disposition home or self-care (01) ==
LOC: M ED 17:19
DX: F41.0 Panic disorder [episodic paroxysmal anxiety] (principal); R35.0 Frequency of micturition; E78.5 Hyperlipidemia, unspecified; E11.9 Type 2 diabetes mellitus without complications; I10 Essential (primary) hypertension; F32.A Depression, unspecified; Z79.84 Long term (current) use of oral hypoglycemic drugs; Z79.899 Other long term (current) drug therapy; Z88.8 Allergy status to other drugs, medicaments and biological substances